=== PATIENT | female | born 1980 ===

== ENCOUNTER 2025-07-24 14:00 | Outpatient (REF) | payer OTHER, SELFPAY | END 2025-07-24 14:01 | disposition home or self-care (01) | LOC: HO.NEURO 14:00 | PROVIDERS: Visit Provider Psychiatry & Neurology Neurology | DX: R20.0 Anesthesia of skin (principal); R20.2 Paresthesia of skin; G62.9 Polyneuropathy, unspecified | CPT/HCPCS: 95886; 95913 ==

== ENCOUNTER → 2025-07-24 14:00 | Outpatient (BNV) | payer OTHER, SELFPAY | PROVIDERS: Visit Provider Psychiatry & Neurology Neurology | DX: G62.89 Other specified polyneuropathies (principal) | CPT/HCPCS: 95886; 95913 ==